=== PATIENT | female | born 1955 | race African-American/Black ===

== ENCOUNTER 2020-03-17 19:44 | Emergency (ER) | payer MEDICARE, MEDICAID ==
[~2020-03-17] VITALS: Ht 162.6 cm; Wt 79.0 kg
[2020-03-17] MEDS ORDERED: KETOROLAC 30MG/ML VIAL IV STA (20:48)
[2020-03-17] MEDS ORDERED: SODIUM CHLORIDE 0.9% 1,000 ML IV ONE (20:48)
[2020-03-17 21:22] LABS: BASOPHILS % 0.6 % (0.0-2.0); EOSINOPHILS % 0.5 % (0.0-5.0); HEMATOCRIT. 35.4 % (36.0-48.0); HEMOGLOBIN. 12.5 g/dL (12.0-16.0); LYMPHOCYTES % 28.7 % (20.0-50.0); MEAN CORPUSCULAR HEMOGLOBIN 41.1 pg (28.0-32.0); MEAN CORPUSCULAR VOLUME 116.2 fL (81.0-99.0); MEAN PLATELET VOLUME 7.8 fl (7.4-10.4); MONOCYTES % 5.5 % (2.0-8.0); NEUTROPHILS % 64.7 % (40.0-76.0); PLATELET 239 x1000/uL (130-400); RED BLOOD CELL COUNT 3.04 mill/uL (4.2-5.4); RED CELL DISTRIBUTION WIDTH 16.5 % (11.6-14.6)
[2020-03-17 21:29] LABS: CHLORIDE 105 mEq/L (98-107)
[2020-03-17 21:32] LABS: INR 1.3; PROTHROMBIN TIME 13.6 sec (9.6-11.0)
[2020-03-17 22:12] LABS: PLATELET ESTIMATE NORMAL
[2020-03-18 00:07] VITALS: BP 127/76
== END 2020-03-18 00:08 | disposition home or self-care (01) ==
LOC: ER 19:44
DX: R10.13 Epigastric pain (principal); K46.9 Unspecified abdominal hernia without obstruction or gangrene; I10 Essential (primary) hypertension
CPT/HCPCS: 36415; 74176; 80053; 83690; 84484; 85025; 85610; 93005; 96374; 99285; J1885; J7030

== ENCOUNTER 2020-05-28 21:46 | Inpatient (IN) | payer MEDICARE, MEDICAID ==
[~2020-05-28] VITALS: Ht 167.6 cm; Wt 79.1 kg
[2020-05-28] MEDS ORDERED: ADENOSINE 3 MG/ML 2ML VIAL IV ONE (22:04)
[2020-05-28] MEDS ORDERED: SODIUM CHLORIDE 0.9% 1,000 ML IV ONE ×2 (22:06)
[2020-05-28] MEDS ORDERED: DILTIAZEM HCL 5MG/ML 5ML VIAL IV ONE (22:15)
[2020-05-29] VITALS (25 sets, daily range): BP systolic 65–121; BP diastolic 22–92
[2020-05-29] MEDS ORDERED: DILTIAZEM HCL 125 MG in DEXT 5% WATER 100 ML IV ONE ×2
[2020-05-29 00:03] LABS: CHLORIDE 113 mEq/L (98-107)
[2020-05-29 00:05] LABS: BASOPHILS % 0.2 % (0.0-2.0); EOSINOPHILS % 0.2 % (0.0-5.0); HEMATOCRIT. 29.7 % (36.0-48.0); HEMOGLOBIN. 9.5 g/dL (12.0-16.0); LYMPHOCYTES % 8.4 % (20.0-50.0); MEAN CORPUSCULAR HEMOGLOBIN 40.4 pg (28.0-32.0); MEAN CORPUSCULAR VOLUME 126.8 fL (81.0-99.0); MEAN PLATELET VOLUME 10.2 fl (7.4-10.4); MONOCYTES % 4.6 % (2.0-8.0); NEUTROPHILS % 86.6 % (40.0-76.0); PLATELET 150 x1000/uL (130-400); RED BLOOD CELL COUNT 2.34 mill/uL (4.2-5.4); RED CELL DISTRIBUTION WIDTH 21.9 % (11.6-14.6)
[2020-05-29 00:09] LABS: PLATELET ESTIMATE NORMAL
[2020-05-29 00:11] LABS: CREATINE KINASE 20 IU/L (26-192); INR 1.7; PROTHROMBIN TIME 17.8 sec (9.6-11.0)
[2020-05-29] MEDS ORDERED: VANCOMYCIN 1 G PREMIX 200 ML IV ONE (00:30)
[2020-05-29] MEDS ORDERED: PIPERACILLIN/TAZ 3.375G PREMIX 50 ML IV ONE (00:30)
[2020-05-29] MEDS ORDERED: SODIUM CHLORIDE 0.9% 1000ML BAG (SEPSIS BOLUS) IV ONE (00:30)
[2020-05-29 03:22] LABS: CLARITY URINE TURBID (CLEAR); COLOR URINE ORANGE (YELLOW); KETONES URINE NEGATIVE (NEGATIVE); LEUKOCYTE ESTERASE URINE 3+ (NEGATIVE); NITRITE URINE POSITIVE (NEGATIVE); OCCULT BLOOD URINE 2+ (NEGATIVE); PROTEIN URINE 1+ (NEGATIVE); SPECIFIC GRAVITY URINE 1.021 (1.005-1.030)
[2020-05-29] MEDS ORDERED: ONDANSETRON HCL 4MG/2ML INJ IV PRN (07:45)
[2020-05-29] MEDS ORDERED: ACETAMINOPHEN 650MG/20.3ML UDC PO PRN (07:45)
[2020-05-29] MEDS ORDERED: DIPHENHYDRAMINE 50MG/ML VIAL IV PRN (07:45)
[2020-05-29] MEDS ORDERED: MORPHINE SULFATE 2 MG/ML CPJ (NOT FOR IM USE) IV PRN (07:45)
[2020-05-29] MEDS: PANTOPRAZOLE SODIUM 40 MG/VIAL IV SCH (08:22)
[2020-05-29] MEDS ORDERED: ENOXAPARIN 40MG/0.4ML SYR SUBCUT SCH (09:00)
[2020-05-29] MEDS: DEXT 5%/0.45% NACL KCL 20MEQ/L 1,000 ML IV SCH ×3 (09:04→21:06)
[2020-05-29] MEDS: METOPROLOL TARTRATE 50MG TABLET NG SCH ×2 (09:28→21:00)
[2020-05-29 09:35] LABS: BASOPHILS % 0.4 % (0.0-2.0); EOSINOPHILS % 0.2 % (0.0-5.0); HEMOGLOBIN. 10.7 g/dL (12.0-16.0); MEAN CORPUSCULAR HEMOGLOBIN 39.7 pg (28.0-32.0); MEAN CORPUSCULAR VOLUME 125.9 fL (81.0-99.0); MEAN PLATELET VOLUME 9.4 fl (7.4-10.4); MONOCYTES % 6.2 % (2.0-8.0); NEUTROPHILS % 82.2 % (40.0-76.0); PLATELET 227 x1000/uL (130-400); RED CELL DISTRIBUTION WIDTH 22.2 % (11.6-14.6)
[2020-05-29 09:41] LABS: CHLORIDE 113 mEq/L (98-107)
[2020-05-29] MEDS ORDERED: PIPERACILLIN/TAZOBACTAM 3.375 G in DEXT 5% WATER 100 ML IV SCH (10:00)
[2020-05-29] MEDS ORDERED: PIPERACILLIN/TAZOBACTAM 3.375 G/VIAL IV SCH (10:00)
[2020-05-29] MEDS ORDERED: VANCOMYCIN 750 MG PREMIX 150 ML IV SCH (12:00)
[2020-05-29] MEDS ORDERED: DIGOXIN 500MCG/2ML AMP IV SCH (12:00)
[2020-05-29] MEDS: VANCOMYCIN 1 G PREMIX 200 ML IV SCH (13:39)
[2020-05-29] MEDS ORDERED: ENOXAPARIN 30MG/0.3ML SYR SUBCUT NR (15:00)
[2020-05-29] MEDS: PIPERACILLIN/TAZOBACTAM 3.375 G in DEXT 5% WATER 100 ML IV SCH ×2 (16:26→22:53)
[2020-05-29 17:26] LABS: *AMPHETAMINES SCREEN URINE NEGATIVE (NEGATIVE); *BARBITURATES SCREEN URINE NEGATIVE (NEGATIVE); *BENZODIAZEPINES SCREEN URINE NEGATIVE (NEGATIVE); *COCAINE SCREEN URINE PRESUMTIVE POSITIVE (NEGATIVE)
[2020-05-29 17:27] LABS: CANNABINOID URINE SCREEN NEGATIVE (NEGATIVE); METHADONE URINE SCREEN NEGATIVE (NEGATIVE); OPIATES URINE SCREEN NEGATIVE (NEGATIVE); PHENCYCLIDINE URINE SCREEN NEGATIVE (NEGATIVE)
[2020-05-30] VITALS (94 sets, daily range): BP systolic 58–154; BP diastolic 27–113
[2020-05-30] MEDS: PHENYLEPHRINE 10 MG in DEXT 5% WATER 249 ML IV PRN ×3 (01:56→14:34)
[2020-05-30] MEDS: VANCOMYCIN 1 G PREMIX 200 ML IV SCH (02:49)
[2020-05-30] MEDS: PIPERACILLIN/TAZOBACTAM 3.375 G in DEXT 5% WATER 100 ML IV SCH ×4 (04:39→21:18)
[2020-05-30 05:41] LABS: BASOPHILS % 0.3 % (0.0-2.0); EOSINOPHILS % 0.5 % (0.0-5.0); HEMATOCRIT. 30.5 % (36.0-48.0); HEMOGLOBIN. 9.5 g/dL (12.0-16.0); LYMPHOCYTES % 8.7 % (20.0-50.0); MEAN CORPUSCULAR HEMOGLOBIN 39.5 pg (28.0-32.0); MEAN CORPUSCULAR VOLUME 126.6 fL (81.0-99.0); MEAN PLATELET VOLUME 9.3 fl (7.4-10.4); MONOCYTES % 5.3 % (2.0-8.0); NEUTROPHILS % 85.2 % (40.0-76.0); PLATELET 229 x1000/uL (130-400); RED BLOOD CELL COUNT 2.41 mill/uL (4.2-5.4); RED CELL DISTRIBUTION WIDTH 21.8 % (11.6-14.6)
[2020-05-30 05:45] LABS: CHLORIDE 111 mEq/L (98-107)
[2020-05-30] MEDS: IPRATROPIUM/ALBUTEROL 0.5-3(2.5)MG/3ML NEB HHN SCH ×3 (07:49→20:39)
[2020-05-30] MEDS: ACETYLCYSTEINE 100MG/ML 10% VIAL 4ML INH SCH ×2 (07:49→13:56)
[2020-05-30] MEDS: LORAZEPAM 2MG/ML CPJ IM PRN ×2 (08:35→08:41)
[2020-05-30] MEDS: DEXT 5%/0.45% NACL KCL 20MEQ/L 1,000 ML IV SCH ×2 (08:35→18:56)
[2020-05-30] MEDS: METOPROLOL TARTRATE 50MG TABLET NG SCH ×2 (08:58→21:17)
[2020-05-30] MEDS: ENOXAPARIN 80MG/0.8ML SYR SUBCUT SCH ×2 (09:03→21:17)
[2020-05-30] MEDS: PANTOPRAZOLE SODIUM 40 MG/VIAL IV SCH (09:03)
[2020-05-30] MEDS ORDERED: POTASSIUM CHLORIDE 20MEQ TABLET SR PO SCH (12:00)
[2020-05-30 16:19] LABS: VANCOMYCIN TROUGH 31.8 ug/mL (5.0-10.0)
[2020-05-30 16:29] LABS: DIGOXIN 0.3 ng/mL (0.9-2.0)
[2020-05-30] MEDS: DIGOXIN 500MCG/2ML AMP IV SCH (18:57)
[2020-05-30] MEDS: PHENYLEPHRINE 40 MG in DEXT 5% WATER 246 ML IV PRN (22:00)
[2020-05-31] VITALS (97 sets, daily range): BP systolic 60–249; BP diastolic 35–232
[2020-05-31] MEDS: DEXT 5%/0.45% NACL KCL 20MEQ/L 1,000 ML IV SCH ×3 (02:34→18:00)
[2020-05-31] MEDS: ACETYLCYSTEINE 100MG/ML 10% VIAL 4ML INH SCH (02:57)
[2020-05-31] MEDS: IPRATROPIUM/ALBUTEROL 0.5-3(2.5)MG/3ML NEB HHN SCH ×2 (02:57→21:19)
[2020-05-31] MEDS: PIPERACILLIN/TAZOBACTAM 3.375 G in DEXT 5% WATER 100 ML IV SCH ×4 (04:13→21:22)
[2020-05-31 06:04] LABS: BASOPHILS % 0.4 % (0.0-2.0); EOSINOPHILS % 2.2 % (0.0-5.0); HEMATOCRIT. 29.3 % (36.0-48.0); HEMOGLOBIN. 9.4 g/dL (12.0-16.0); LYMPHOCYTES % 12.3 % (20.0-50.0); MEAN CORPUSCULAR HEMOGLOBIN 39.7 pg (28.0-32.0); MEAN CORPUSCULAR VOLUME 123.8 fL (81.0-99.0); MEAN PLATELET VOLUME 10.3 fl (7.4-10.4); MONOCYTES % 6.1 % (2.0-8.0); PLATELET 212 x1000/uL (130-400); RED BLOOD CELL COUNT 2.37 mill/uL (4.2-5.4); RED CELL DISTRIBUTION WIDTH 21.9 % (11.6-14.6)
[2020-05-31] MEDS: METOPROLOL TARTRATE 50MG TABLET NG SCH ×2 (09:00→21:22)
[2020-05-31] MEDS ORDERED: VANCOMYCIN 750 MG PREMIX 150 ML IV SCH (09:00)
[2020-05-31] MEDS ORDERED: LIDOCAINE HCL 1% 20ML VIAL (Pyxis) INJ ONE (09:27)
[2020-05-31] MEDS: THIAMINE HCL 100MG TABLET PO SCH (12:00)
[2020-05-31] MEDS: MIDODRINE HCL 5MG TABLET PO SCH ×3 (12:00→17:00)
[2020-05-31] MEDS: FOLIC ACID 1MG TABLET PO SCH (12:00)
[2020-05-31] MEDS: MULTIVITAMINS,THER W-MINERALS TABLET PO SCH (12:00)
[2020-05-31] MEDS: PANTOPRAZOLE SODIUM 40 MG/VIAL IV SCH (12:15)
[2020-05-31] MEDS: ENOXAPARIN 80MG/0.8ML SYR SUBCUT SCH ×2 (12:15→21:21)
[2020-05-31] MEDS: DIGOXIN 500MCG/2ML AMP IV SCH (18:18)
[2020-06-01] VITALS (64 sets, daily range): BP systolic 60–263; BP diastolic 21–233
[2020-06-01] MEDS: IPRATROPIUM/ALBUTEROL 0.5-3(2.5)MG/3ML NEB HHN SCH ×4 (00:51→21:17)
[2020-06-01] MEDS: ACETYLCYSTEINE 100MG/ML 10% VIAL 4ML INH SCH ×3 (00:53→15:13)
[2020-06-01] MEDS: PHENYLEPHRINE 40 MG in DEXT 5% WATER 246 ML IV PRN ×2 (01:07→09:18)
[2020-06-01] MEDS: DEXT 5%/0.45% NACL KCL 20MEQ/L 1,000 ML IV SCH ×3 (02:15→17:40)
[2020-06-01] MEDS: PIPERACILLIN/TAZOBACTAM 3.375 G in DEXT 5% WATER 100 ML IV SCH ×4 (03:53→21:38)
[2020-06-01 06:17] LABS: BASOPHILS % 0.3 % (0.0-2.0); EOSINOPHILS % 0.4 % (0.0-5.0); HEMOGLOBIN. 9.2 g/dL (12.0-16.0); LYMPHOCYTES % 10.4 % (20.0-50.0); MEAN CORPUSCULAR HEMOGLOBIN 39.7 pg (28.0-32.0); MEAN CORPUSCULAR VOLUME 124.4 fL (81.0-99.0); MEAN PLATELET VOLUME 10.2 fl (7.4-10.4); MONOCYTES % 4.5 % (2.0-8.0); NEUTROPHILS % 84.4 % (40.0-76.0); PLATELET 175 x1000/uL (130-400); RED BLOOD CELL COUNT 2.33 mill/uL (4.2-5.4)
[2020-06-01] MEDS: FOLIC ACID 1MG TABLET PO SCH (09:00)
[2020-06-01] MEDS: THIAMINE HCL 100MG TABLET PO SCH (09:00)
[2020-06-01] MEDS: MIDODRINE HCL 5MG TABLET PO SCH ×3 (09:00→17:57)
[2020-06-01] MEDS: MULTIVITAMINS,THER W-MINERALS TABLET PO SCH (09:00)
[2020-06-01] MEDS: PANTOPRAZOLE SODIUM 40 MG/VIAL IV SCH (09:19)
[2020-06-01] MEDS: ENOXAPARIN 80MG/0.8ML SYR SUBCUT SCH ×2 (09:20→21:38)
[2020-06-01] MEDS: METOPROLOL TARTRATE 50MG TABLET NG SCH ×2 (11:53→20:21)
[2020-06-01] MEDS: DIGOXIN 500MCG/2ML AMP IV SCH (17:57)
[2020-06-02] VITALS (71 sets, daily range): BP systolic 40–212; BP diastolic 23–151
[2020-06-02] MEDS: PHENYLEPHRINE 40 MG in DEXT 5% WATER 246 ML IV PRN (00:55)
[2020-06-02] MEDS: DEXT 5%/0.45% NACL KCL 20MEQ/L 1,000 ML IV SCH ×3 (02:05→17:00)
[2020-06-02] MEDS: ACETYLCYSTEINE 100MG/ML 10% VIAL 4ML INH SCH ×3 (02:54→13:53)
[2020-06-02] MEDS: IPRATROPIUM/ALBUTEROL 0.5-3(2.5)MG/3ML NEB HHN SCH ×3 (02:55→13:53)
[2020-06-02 05:39] LABS: BASOPHILS % 0.4 % (0.0-2.0); EOSINOPHILS % 0.7 % (0.0-5.0); HEMATOCRIT. 28.6 % (36.0-48.0); HEMOGLOBIN. 9.3 g/dL (12.0-16.0); LYMPHOCYTES % 12.1 % (20.0-50.0); MEAN CORPUSCULAR HEMOGLOBIN 39.8 pg (28.0-32.0); MEAN CORPUSCULAR VOLUME 122.1 fL (81.0-99.0); MEAN PLATELET VOLUME 9.8 fl (7.4-10.4); MONOCYTES % 6.6 % (2.0-8.0); NEUTROPHILS % 80.2 % (40.0-76.0); PLATELET 163 x1000/uL (130-400); RED BLOOD CELL COUNT 2.35 mill/uL (4.2-5.4); RED CELL DISTRIBUTION WIDTH 21.1 % (11.6-14.6)
[2020-06-02] MEDS: PIPERACILLIN/TAZOBACTAM 3.375 G in DEXT 5% WATER 100 ML IV SCH ×3 (05:58→15:51)
[2020-06-02] MEDS: METOPROLOL TARTRATE 50MG TABLET NG SCH (09:00)
[2020-06-02] MEDS: PANTOPRAZOLE SODIUM 40 MG/VIAL IV SCH (09:57)
[2020-06-02] MEDS: ENOXAPARIN 80MG/0.8ML SYR SUBCUT SCH (09:57)
[2020-06-02] MEDS: FOLIC ACID 1MG TABLET PO SCH (10:08)
[2020-06-02] MEDS: THIAMINE HCL 100MG TABLET PO SCH (10:08)
[2020-06-02] MEDS: MIDODRINE HCL 5MG TABLET PO SCH ×3 (10:08→15:51)
[2020-06-02] MEDS: MULTIVITAMINS,THER W-MINERALS TABLET PO SCH (10:08)
[2020-06-02] MEDS ORDERED: ENOXAPARIN 80MG/0.8ML SYR SUBCUT SCH (21:00)
== END 2020-06-02 18:50 | disposition short-term general hospital (02) | DRG 720 ==
LOC: ER 21:46 → 5EST 05-29 00:58 → ENRESERV 05-29 02:32 → MICUNO 05-29 21:35 → CVICU 06-01 12:00
PROVIDERS: ADMIT Internal Medicine; ATTEND Internal Medicine
PROC: 05HY33Z Insertion of Infusion Device into Upper Vein, Percutaneous Approach (ICD-10-PCS; principal; 2020-05-31)
PROC: B54MZZA Ultrasonography of Right Upper Extremity Veins, Guidance (ICD-10-PCS; 2020-05-31)
DX: A41.9 Sepsis, unspecified organism (principal); E43 Unspecified severe protein-calorie malnutrition; E87.0 Hyperosmolality and hypernatremia; E87.6 Hypokalemia; E87.8 Other disorders of electrolyte and fluid balance, not elsewhere classified; G93.41 Metabolic encephalopathy; J96.00 Acute respiratory failure, unspecified whether with hypoxia or hypercapnia; N39.0 Urinary tract infection, site not specified; D68.9 Coagulation defect, unspecified; I27.20 Pulmonary hypertension, unspecified; F14.10 Cocaine abuse, uncomplicated; F17.210 Nicotine dependence, cigarettes, uncomplicated; I10 Essential (primary) hypertension; D64.9 Anemia, unspecified; I47.1 Supraventricular tachycardia; I48.91 Unspecified atrial fibrillation; I48.92 Unspecified atrial flutter; J44.9 Chronic obstructive pulmonary disease, unspecified; Z82.3 Family history of stroke; Z87.442 Personal history of urinary calculi; Z90.49 Acquired absence of other specified parts of digestive tract; Z86.73 Personal history of transient ischemic attack (TIA), and cerebral infarction without residual deficits; Z71.51 Drug abuse counseling and surveillance of drug abuser; Z68.28 Body mass index [BMI] 28.0-28.9, adult; Z79.899 Other long term (current) drug therapy; L89.326 Pressure-induced deep tissue damage of left buttock; L89.316 Pressure-induced deep tissue damage of right buttock; R65.21 Severe sepsis with septic shock
CPT/HCPCS: 36415; 70551; 71045; 76937; 80048; 80053; 80162; 80202; 80305; 81003; 82040; 82140; 82550; 83605; 83880; 84134; 84145; 84443; 84484; 85025; 92610; 93005; 93306; 93880; 93970; 94640; 97161; 99291; C1725; C9113; J0153; J1160; J1200; J1650; J2060; J2370; J2543; J3370; J3490; J7030; J7060; J7608